=== PATIENT | female | born 1955 | race Caucasian/White ===

== ENCOUNTER 2018-06-11 10:05 | Inpatient (IN) | payer OTHER ==
[2018-06-11] MEDS ORDERED: Ondansetron PF 4 MG/2 ML Vial ONE ×2 (10:35→11:09)
[2018-06-11 11:03] LABS: #Basophils 0.1 thou/uL (0.0-0.2); #Lymphocytes 0.6 thou/uL (1.20-3.40); #Monocytes 0.7 thou/uL (0.11-0.59); #Neutrophils 7.5 thou/uL (1.40-6.50); %Basophils 0.6 % (0.0-1.0); %Lymphocytes 6.6 % (21.0-51.0); %Monocytes 8.3 % (0.0-10.0); %Neutrophils 84.5 % (42.0-75.0); Hemoglobin 11.1 g/dL (12.0-16.0); Mean Corpuscular Hemoglobin 27.3 pg (27.0-31.0); Mean Corpuscular Volume 82.5 fL (78.0-98.0); Mean Platelet Volume 6.5 fL (7.4-10.4); Platelet Count 125 thou/uL (130-400); RBC Distribution Width 12.5 % (11.5-14.5); Red Blood Cell (RBC) Count 4.08 mill/uL (4.20-5.40); White Blood Cell (WBC) Count 8.8 thou/uL (4.8-10.8)
[2018-06-11] MEDS ORDERED: Morphine 4 MG/ML Carpuject ONE (11:09)
[2018-06-11 11:14] LABS: ALT (SGPT) 32 U/L (8-55); AST (SGOT) 32 U/L (5-34); Albumin 3.5 g/dL (3.4-4.8); Alkaline Phosphatase 92 U/L (40-150); Anion Gap 17 mmol/L (10-20); BUN (Urea Nitrogen) 39 mg/dL (9.8-20.1); Bilirubin, Total 0.8 mg/dL (0.2-1.2); Calc. Creatinine Clearance 0 mL/min (70-130); Calcium 9.7 mg/dL (7.8-10.44); Carbon Dioxide 24 mmol/L (23-31); Chloride 98 mmol/L (98-107); Estimated GFR-MDRD 26; Globulin 3.1 g/dL (2.4-3.5); Glucose 122 mg/dL (80-115); Lipase 8 U/L (8-78); Potassium 3.6 mmol/L (3.5-5.1); Protein, Total 6.6 g/dL (6.0-8.3); Sodium 135 mmol/L (136-145)
[2018-06-11] MEDS ORDERED: Sodium Chloride 0.9% 100 ML ONE ×2 (12:05→13:23)
[2018-06-11] MEDS ORDERED: Piperacillin/Tazobactam 4.5 GM VIAL ONE (12:05)
[2018-06-11] MEDS ORDERED: Morphine 4 MG/ML VIAL ONE (12:05)
[2018-06-11] MEDS ORDERED: VANC / ABX IVPB PRN (12:10)
[2018-06-11] MEDS ORDERED: Vancomycin HCl 1 GM in Premix Bag 1 BAG IVPB SCH (12:15)
--- NOTE | 2018-06-11 12:19 | CT ---
CT ABDOMEN AND PELVIS WITHOUT CONTRAST: Date: 06/11/18 HISTORY: Abdominal pain. COMPARISON: None. FINDINGS: Lung bases are clear. No pericardial effusion. The liver is enlarged. There is cholelithiasis. There is gas within the left renal collecting system. There is left-sided perinephric stranding. Ther e are two separate calculi in the intrapolar left renal collecting system measuring 3 x 3 mm and 3 x 4 mm. Mild left-sided periureteral stranding. No distal obstructive calculus to the left ureter. No c alculus is seen within the urinary bladder. No right-sided hydroureteronephrosis or nephroureterolithiasis. The appendix is visualized and is normal. There is some reactive left periaortic and perirenal lymph nodes, as well as iliac lymph nodes. Small, fat-containing, left-sided indirect inguinal hernia. There are degenerative changes in the lumbar spine. IMPRESSION: 1. Asymmetric left perinephric stranding with thickened renal pelvic urothelium and proximal ureter al urothelium. Findings suggest infectious pyelitis and pyelonephritis. There are 3 x 3 and 3 x 4 mm calculus intrapolar left renal sukhdev, as well as a 3 x 3 mm calculus left superior renal sukhdev. There is no calculus within the left ureter to explain the inflammatory change and the low grade dilatatio n of the collecting system on the left. The patient may have passed a stone which has caused the infe ctious pyelitis. Underlying distal obstructive mass at the ureterovesical junction is not ween. A fol low-up CT urogram may be beneficial after treatment. 2. Cholelithiasis without cholecystitis. POS: [facility]
[2018-06-11 13:20] LABS: Bilirubin Negative (Negative); Blood, Urine Small (Negative); Clarity Cloudy (Clear); Glucose, Urine (Dipstick) Negative (Negative); Leukocyte Large (Negative); Nitrite Negative (Negative); Protein, Urine (Dipstick) Negative (Neg-Trace); Urobilinogen 0.2 mg/dL (0.2-1.0); pH, Urine 5.5 (5.0-9.0)
[2018-06-11 13:21] LABS: Specific Gravity, Urine 1.005 (1.002-1.036)
[2018-06-11] MEDS ORDERED: Meropenem 1 GM VIAL ONE (13:22)
[2018-06-11 13:23] LABS: Bacteria/HPF Rare-Few HPF (None Seen); RBC/HPF 0-3 HPF (0-3); Renal Epithelial 0-3 HPF (0-3); Squamous Epithelial 0-3 HPF (0-3)
[2018-06-11] MEDS ORDERED: Ondansetron ODT 4 MG TAB PO PRN (13:24)
[2018-06-11] MEDS ORDERED: hydrALAZINE 20 MG/ML VIAL SLOW IVP PRN (13:28)
[2018-06-11] MEDS ORDERED: Meropenem 1 GM in Sodium Chloride 0.9% 100 ML IVPB SCH (14:00)
[2018-06-11 16:31] VITALS: BMI 53.7
[2018-06-11] MEDS: Sodium Chloride 0.9% 1,000 ML IV SCH ×2 (16:44→18:14)
[2018-06-11] MEDS: Acetaminophen 325 MG TAB PO PRN (18:14)
[2018-06-11] MEDS: Ondansetron PF 4 MG/2 ML Vial IVP PRN (20:30)
[2018-06-11] MEDS: MEROPENEM 1 GM/50 ML 1 GM in Premix Bag 1 BAG IVPB SCH (20:32)
[2018-06-12] MEDS: Sodium Chloride 0.9% 1,000 ML IV SCH ×5 (00:36→20:49)
[2018-06-12] MEDS: Acetaminophen 325 MG TAB PO PRN ×3 (01:19→18:25)
[2018-06-12] MEDS ORDERED: Dextrose 5% in Water 1,000 ML IV PRN (01:47)
[2018-06-12] MEDS ORDERED: Dextrose 50% Abboject 50 ML SYRINGE SLOW IVP PRN (01:47)
[2018-06-12] MEDS ORDERED: HumaLOG 300 UNITS/3 ML VIAL SC PRN ×3 (01:47→12:37)
[2018-06-12] MEDS ORDERED: PROVENTIL INHALER 6.7 G (200 INHALATIONS) INH PRN (01:50)
[2018-06-12] MEDS ORDERED: Hyoscyamine Sulfate SL 0.125 mg Tablet SL PRN (01:50)
[2018-06-12] MEDS: Ondansetron PF 4 MG/2 ML Vial IVP PRN (02:24)
--- NOTE | 2018-06-12 04:29 | HP ---
PRIMARY CARE PROVIDER: Dr. Amaya Patterson. CHIEF COMPLAINT: Abdominal and left flank pain. HISTORY OF PRESENT ILLNESS: This is a 63-year-old female, who presents to [facility] complaining of left upper abdominal pain and left flank pain over the last 4 days. The patient states that the pain began suddenly with radiation to the back and toward the umbilicus. The patient noted discoloration and cloudiness to the urine, but no specific documented fever. The patient admitted associated nausea and some emesis with decreased appetite and oral intake over the last 4 days. The patient's last known oral intake was 4 days prior to this evaluation, as well as last bowel movement. The patient denied any specific trauma, injury, ingestion, or travel history. The patient does admit to history of left renal lithiasis status post laser lithotripsy with stone extraction in 2012. The patient was evaluated by her primary care provider and placed on Macrobid and given Flomax. The patient states the symptoms progressed prompting her to seek medical attention. In the emergency room, the patient underwent general evaluation including urinalysis showing large leukocyte esterase and WBCs. The patient underwent CT of the abdomen and pelvis showing evidence of stranding in the proximal left ureter with gas noted in the left renal collecting system. Small renal calculi were noted, however, no evidence of hydronephrosis reported. The patient was given vancomycin, meropenem, and Zosyn in the emergency room. The patient also received intravenous normal saline as well as antiemetics and morphine sulfate. PAST MEDICAL HISTORY: 1. Left renal lithiasis, status post laser lithotripsy with stone extraction and stent placement. 2. Chronic kidney disease stage 2. 3. Diabetes mellitus type 2, insulin requiring. 4. Hypertension. 5. Obstructive sleep apnea with nocturnal nasal CPAP. 6. Morbid obesity. 7. Migraine headaches. PAST SURGICAL HISTORY: 1. Status post extracorporeal shock wave lithotripsy in 2012. 2. Status post laser lithotripsy in 2012. 3. Status post hysterectomy secondary to cervical cancer in 1986. 4. Status post excision of a breast tumor. CURRENT MEDICATIONS: 1. ProAir RespiClick two inhalations q.4 hours p.r.n. 2. Lipitor 20 mg p.o. daily. 3. Lasix 20 mg p.o. daily. 4. Levsin SL 0.125 mg sublingually q.4 hours p.r.n. 5. NovoLog FlexPen 5 units subcutaneously with meals. 6. Glargine insulin 55 units subcutaneously b.i.d. 7. Losartan/HCTZ 50/12.5 mg 1 tab p.o. daily. 8. Imitrex 6 mg subcutaneously b.i.d. p.r.n. 9. Imitrex 100 mg p.o. daily. 10. Flomax 0.4 mg p.o. daily. 11. Tramadol 50 mg 1 tablet p.o. q.6 hours p.r.n. pain. ALLERGIES: TO KEFLEX, CIPROFLOXACIN, IBUPROFEN, LATEX, AND BACTRIM. FAMILY HISTORY: Father had myocardial infarction. Mother with diabetes mellitus and CVA. SOCIAL HISTORY: Resides in [place], [place]. . No current alcohol, tobacco, or illicit drug use. REVIEW OF SYSTEMS: CONSTITUTIONAL: Negative for weight loss or gain, ability to conduct usual activities. SKIN: Negative for rash, itching. EYES: Negative for double vision, pain. ENT/MOUTH: Negative for nose bleeding, neck stiffness, pain, tenderness. CARDIOVASCULAR: Negative for palpitations, dyspnea on exertion, orthopnea. RESPIRATORY: Negative for shortness of breath, wheezing, cough, hemoptysis, fever or night sweats. GASTROINTESTINAL: As above. GENITOURINARY: As above. Negative for urgency, frequency, dysuria, nocturia. MUSCULOSKELETAL: Negative for pain, swelling. NEUROLOGIC/PSYCHIATRIC: Negative for anxiety, depression. ALLERGY/IMMUNOLOGIC: Negative for skin rash, bleeding tendency. PHYSICAL EXAMINATION: VITAL SIGNS: On admission, blood pressure 116/53, pulse 77, respiratory rate 22, temperature 98.8 degrees Fahrenheit, O2 saturation 96% on room air. GENERAL APPEARANCE: This is a 63-year-old female, alert and oriented x3, pleasant, conversant, in no acute distress. HEENT: Pupils are equal, round, reactive to light and accommodation. Extraocular muscles are intact. No scleral icterus. No conjunctival injection. Nares patent. OP is clear. Nasal CPAP mask in place. NECK: Supple. No cervical adenopathy. No thyromegaly. No carotid bruits. No JVD appreciated. Cervical spinal, full active and passive range of motion. No meningeal signs noted. CHEST: Lungs are clear to auscultation bilaterally. CARDIOVASCULAR: S1 and S2 without noted murmur, rub, or gallop. ABDOMEN: Obese with mild tenderness to palpation in the left upper and left lower quadrants in addition to left CVA tenderness. No palpable mass. However, landmarks are difficult to palpate due to patient's body habitus. EXTREMITIES: Warm and dry with fair turgor. No clubbing, cyanosis, or asymmetric edema appreciated. Pulses palpable distally at the dorsalis pedis, posterior tibial, and popliteal arteries bilaterally. Capillary refill less than 2 seconds. NEUROLOGIC: Cranial nerves 2 through 12 are grossly intact. No focal or lateralizing signs appreciated. PERTINENT LABORATORY AND X-RAY FINDINGS: Sodium 135, potassium 3.5, chloride 98, CO2 24, BUN 39, creatinine 1.97, estimated GFR 26. Lactic acid level 0.7, calcium 9.7. LFTs within normal limits. Lipase 8. CBC showed a white blood cell count of 8.8, hemoglobin 11, hematocrit 34, and platelet count 125, with 85% neutrophils. Urinalysis dated 06/11/2018, showed large leukocyte esterase with 4 to 6 wbc's per high-powered field. CT of the abdomen and pelvis dated 06/11/2018 showed asymmetric left perinephric stranding with thickened renal pelvic urothelium. Small left-sided calculus noted. No hydronephrosis noted. EKG dated 06/11/2018 by my interpretation shows sinus mechanism with heart rates in the 70s. Normal R-wave progression noted in the precordial leads. Normal axis. No acute ST-T wave changes appreciated. ASSESSMENT AND PLAN: 1. Acute pyelonephritis. The patient will be admitted to the medical floor. We will continue meropenem 1 g IV q.8 hours with additional vancomycin 2 g IV daily. Continue intravenous normal saline. Pain control with morphine sulfate 4 mg IV q.4 hours p.r.n. No current evidence to suggest obstructive uropathy by CT imaging. 2. Acute kidney injury. We will continue IV fluids as outlined previously. Avoid nephrotoxic agents and limit contrast exposure. Serial creatinine monitoring. 3. Dehydration. Continue IV fluids as outlined previously. Encourage increased p.o. free water intake. 4. Diabetes mellitus type 2, insulin requiring. Continue insulin sliding scale for reflexive coverage. Confirm home insulin regimen. ADA diet. Serial Accu-Cheks a.c. and h.s. 5. Prophylaxis. SCDs while in bed. Pepcid 20 mg p.o. b.i.d. 6. Code status, full. Surrogate medical decision maker is the patient's spouse. Job ID: [id number]
[2018-06-12] MEDS: MEROPENEM 1 GM/50 ML 1 GM in Premix Bag 1 BAG IVPB SCH ×3 (04:56→20:31)
[2018-06-12 07:22] LABS: #Lymphocytes 0.8 thou/uL (1.20-3.40); #Monocytes 0.5 thou/uL (0.11-0.59); #Neutrophils 4.3 thou/uL (1.40-6.50); %Basophils 0.8 % (0.0-1.0); %Eosinophils 0.3 % (0.0-10.0); %Lymphocytes 14.4 % (21.0-51.0); %Monocytes 8.8 % (0.0-10.0); %Neutrophils 75.8 % (42.0-75.0); Hemoglobin 10.5 g/dL (12.0-16.0); Mean Corpuscular HGB CONC 32.1 g/dL (32.0-36.0); Mean Corpuscular Hemoglobin 27.9 pg (27.0-31.0); Mean Corpuscular Volume 87.1 fL (78.0-98.0); Mean Platelet Volume 6.7 fL (7.4-10.4); Platelet Count 188 thou/uL (130-400); RBC Distribution Width 13.8 % (11.5-14.5); Red Blood Cell (RBC) Count 3.77 mill/uL (4.20-5.40); White Blood Cell (WBC) Count 5.7 thou/uL (4.8-10.8)
[2018-06-12 07:27] LABS: Lactic Acid 0.8 mmol/L (0.5-2.2)
[2018-06-12 07:35] LABS: ALT (SGPT) 28 U/L (8-55); AST (SGOT) 27 U/L (5-34); Albumin 3.4 g/dL (3.4-4.8); Alkaline Phosphatase 105 U/L (40-150); Anion Gap 14 mmol/L (10-20); BUN (Urea Nitrogen) 31 mg/dL (9.8-20.1); Bilirubin, Total 0.6 mg/dL (0.2-1.2); CRP (Inflammatory) 20.48 mg/dL (= or < 0.5); Calc. Creatinine Clearance 65 mL/min (70-130); Calcium 9.2 mg/dL (7.8-10.44); Carbon Dioxide 25 mmol/L (23-31); Chloride 105 mmol/L (98-107); Estimated GFR-MDRD 28; Globulin 2.9 g/dL (2.4-3.5); Glucose 88 mg/dL (80-115); Magnesium 1.9 mg/dL (1.6-2.6); Potassium 3.9 mmol/L (3.5-5.1); Protein, Total 6.3 g/dL (6.0-8.3); Sodium 140 mmol/L (136-145)
[2018-06-12] MEDS: Tamsulosin HCl 0.4 MG CAP PO SCH (08:37)
[2018-06-12] MEDS: Saccharomyces boulardii 250 MG CAP PO SCH (08:37)
[2018-06-12] MEDS: Enoxaparin Sodium 40 MG/0.4 ML SYRINGE SC SCH (08:37)
[2018-06-12] MEDS: Atorvastatin Calcium 20 MG TAB PO SCH (08:37)
[2018-06-12] MEDS: Insulin Glargine 25 UNITS in Pre-Filled Syringe 1 EACH SC SCH ×2 (08:38→20:47)
[2018-06-12] MEDS ORDERED: SUMAtriptan Succinate 50 MG TAB PO SCH (09:00)
[2018-06-12] MEDS ORDERED: Insulin Glargine 55 UNITS in Pre-Filled Syringe 1 EACH SC SCH (09:00)
[2018-06-12] MEDS ORDERED: INSULIN GLARGINE HUM REC ANLOG SQ SCH (09:00)
[2018-06-12] MEDS ORDERED: [UNRECOGNIZED DRUG - OTHER] SQ SCH (09:00)
[2018-06-12 13:38] LABS: Vancomycin, Random 9.4 ug/mL (See Comment)
[2018-06-12] MEDS: traMADol HCl 50 MG TAB PO PRN (18:25)
[2018-06-12] MEDS: Morphine 4 MG/ML VIAL SLOW IVP PRN (20:38)
--- NOTE | 2018-06-12 22:55 | CON ---
DATE OF CONSULTATION: 06/12/2018 REASON FOR CONSULTATION: Pyelonephritis. HISTORY OF PRESENT ILLNESS: A 63-year-old, appears to be the 1st admission at [facility] with a history of type 2 diabetes, nephrolithiasis with prior stone extraction and stent placement, obesity, who developed flank pain for the past 4 days before admission, fairly sudden onset. She has had some nausea and emesis. Urinalysis was abnormal on arrival and CT of abdomen and pelvis showed stranding in the left kidney and there is some gas in the renal collecting system. No hydronephrosis. The patient is given broad-spectrum coverage and admitted to the 3rd floor. No distress right now. Maybe little bit of headaches. No visual symptoms, sore throat, odynophagia, or dysphagia. No back pain. Flank pain is better. No cough or sputum production. No abdominal pain. No genitourinary symptoms. PAST MEDICAL HISTORY: Type 2 diabetes, nephrolithiasis with prior stone extraction and stent placement, hypertension, ZACK, obesity. PAST SURGICAL HISTORY: Lithotripsy, hysterectomy, breast tumor excision. ALLERGIES: 1. KEFLEX. 2. CIPRO. 3. BACTRIM. FAMILY HISTORY: Coronary artery disease and type 2 diabetes. SOCIAL HISTORY: Never smoker. Lives in [place]. CURRENT MEDICATIONS: 1. Tylenol. 2. Proventil. 3. Lipitor. 4. Lovenox. 5. Levsin. 6. Insulin. 7. Meropenem. 8. Vancomycin. PHYSICAL EXAMINATION: VITAL SIGNS: T-max 99, blood pressure 108/66, pulse 75, respirations 18, O2 saturation 98% on room air. GENERAL: Appears in no distress. SKIN: Normal. The patient has peripheral IV access and is voiding in the toilet. No lymphadenopathy. HEENT: Noncontributory. NECK: Supple. LUNGS: Symmetric. Clear breath sounds. HEART: S1 and S2. Regular rate. ABDOMEN: Soft with mild left flank tenderness. No bladder distention. EXTREMITIES: No joint inflammatory activity. Pulses 1+ in dorsalis pedis. No edema. Moves extremities equally. NEUROLOGIC: Cognitive function appears to be intact. LABORATORY DATA: White cell count 8.8 and 5.7, hemoglobin 11, platelets 125 and 188, 84% neutrophils. Chemistry with a creatinine of 1.84, which is a bit higher than her baseline of 1.24. Liver profile normal. CRP 20. Albumin 3.4. Urinalysis with 4 to 6 wbc's. Urine culture with gram-negative rods, yet to be susceptibility tested. Two sets of blood cultures, no growth thus far. Abdomen CT with gas in the collecting system, but not in the renal parenchyma. Perinephric stranding. Two small calculi, but no obstruction. ASSESSMENT: 1. Obesity with type 2 diabetes. 2. History of nephrolithiasis with prior stenting, now with flank pain and imaging findings are consistent with pyelonephritis. DISCUSSION: Since the patient does not have gas actually located in the renal parenchyma, but only in the collecting system, this is not the true emphysematous pyelonephritis, but just regular pyelonephritis. Continue to respond well, sooner now we will have the results of the cultures and be able to simplify therapy. We will have to inquire further regarding her quinolone allergy to see if this is a true allergic reaction. Job ID: [id number]
[2018-06-13] MEDS: Sodium Chloride 0.9% 1,000 ML IV SCH ×2 (04:41→12:05)
[2018-06-13] MEDS: Morphine 4 MG/ML VIAL SLOW IVP PRN (04:42)
[2018-06-13] MEDS: MEROPENEM 1 GM/50 ML 1 GM in Premix Bag 1 BAG IVPB SCH ×3 (04:50→20:17)
[2018-06-13 06:56] LABS: #Lymphocytes 0.8 thou/uL (1.20-3.40); #Monocytes 0.6 thou/uL (0.11-0.59); #Neutrophils 4.5 thou/uL (1.40-6.50); %Basophils 0.6 % (0.0-1.0); %Eosinophils 0.7 % (0.0-10.0); %Lymphocytes 13.4 % (21.0-51.0); %Monocytes 9.4 % (0.0-10.0); %Neutrophils 75.9 % (42.0-75.0); Hemoglobin 9.5 g/dL (12.0-16.0); Mean Corpuscular Hemoglobin 27.6 pg (27.0-31.0); Mean Corpuscular Volume 86.3 fL (78.0-98.0); Mean Platelet Volume 6.4 fL (7.4-10.4); Platelet Count 166 thou/uL (130-400); RBC Distribution Width 13.9 % (11.5-14.5); Red Blood Cell (RBC) Count 3.42 mill/uL (4.20-5.40); White Blood Cell (WBC) Count 5.9 thou/uL (4.8-10.8)
[2018-06-13 07:16] LABS: ALT (SGPT) 35 U/L (8-55); AST (SGOT) 31 U/L (5-34); Alkaline Phosphatase 123 U/L (40-150); Anion Gap 12 mmol/L (10-20); BUN (Urea Nitrogen) 22 mg/dL (9.8-20.1); Bilirubin, Total 0.4 mg/dL (0.2-1.2); Calc. Creatinine Clearance 77 mL/min (70-130); Calcium 8.4 mg/dL (7.8-10.44); Carbon Dioxide 23 mmol/L (23-31); Chloride 108 mmol/L (98-107); Estimated GFR-MDRD 34; Globulin 2.6 g/dL (2.4-3.5); Glucose 108 mg/dL (80-115); Protein, Total 5.6 g/dL (6.0-8.3); Sodium 139 mmol/L (136-145)
[2018-06-13] MEDS: Enoxaparin Sodium 40 MG/0.4 ML SYRINGE SC SCH (08:29)
[2018-06-13] MEDS: Saccharomyces boulardii 250 MG CAP PO SCH (08:30)
[2018-06-13] MEDS: Tamsulosin HCl 0.4 MG CAP PO SCH (08:30)
[2018-06-13] MEDS: Atorvastatin Calcium 20 MG TAB PO SCH (08:30)
[2018-06-13] MEDS: Insulin Glargine 25 UNITS in Pre-Filled Syringe 1 EACH SC SCH ×2 (08:35→21:57)
[2018-06-13] MEDS: Sodium Chloride 0.45% 1,000 ML IV SCH ×2 (15:22→21:57)
[2018-06-13] MEDS: Acetaminophen 325 MG TAB PO PRN (17:03)
[2018-06-13] MEDS ORDERED: HumaLOG 300 UNITS/3 ML VIAL SC PRN (21:31)
--- NOTE | 2018-06-13 21:36 | PDOC.PN ---
- Subjective Encounter Start Date: 06/13/18 Encounter Start Time: 10:30 Patient seen and examined for Acute Pyelonephritis. Flank pain resolved. No fever/chills/dysuria/diarrhea. No new complaints. No overnight events - Objective Resuscitation Status - Order Detail: 06/11/18 13:24 Resuscitation Status Routine Resuscitation Status: FULL: Full Resuscitation MAR Reviewed: Yes Vital Signs & Weight: Vital Signs (12 hours) Temp Pulse Resp BP Pulse Ox 06/13/18 20:50 98.3 F 73 20 118/72 94 L 06/13/18 15:25 98.7 F 81 20 152/70 H 98 06/13/18 11:50 97.7 F 84 18 134/72 92 L Weight Weight 294 lb I&O: 06/12/18 06/13/18 06/14/18 06:59 06:59 06:59 Intake Total 480 7065 3875 Output Total 325 2175 1400 Balance 155 4890 2475 Result Diagrams: 06/14/18 09:23 06/14/18 09:23 Additional Labs: Accuchecks 06/13/18 06/13/18 06/13/18 21:15 15:25 11:56 POC Glucose 128 H 127 H 117 H 06/13/18 05:20 POC Glucose 108 Radiology Reviewed by me: Yes (CT - Pyelonep.) Phys Exam - Physical Examination Constitutional: NAD HEENT: PERRLA, moist MMs Neck: no JVD Respiratory: no wheezing, no rales, no rhonchi, clear to auscultation bilateral Cardiovascular: RRR, no rub no heaves/pulsations Gastrointestinal: soft, non-tender, no distention, positive bowel sounds Musculoskeletal: no edema, pulses present Neurological: non-focal, normal sensation, moves all 4 limbs Psychiatric: normal affect, A&O x 3 Skin: no rash Dx/Plan (1) Acute pyelonephritis Code(s): N10 - ACUTE PYELONEPHRITIS Status: Acute (2) SUNNY (acute kidney injury) Code(s): N17.9 - ACUTE KIDNEY FAILURE, UNSPECIFIED Status: Acute (3) Morbid obesity with BMI of 50.0-59.9, adult Code(s): E66.01 - MORBID (SEVERE) OBESITY DUE TO EXCESS CALORIES; Z68.43 - BODY MASS INDEX (BMI) 50-59.9, ADULT Status: Chronic (4) DM2 (diabetes mellitus, type 2) Status: Chronic Qualifiers: Chronic kidney disease stage: stage 3 (moderate) (5) Other issues per previous notes - Plan cont current plan of care, continue antibiotics, out of bed/ambulate, DVT proph w/SCDs Change IVF to 1/2 NS -: Cont Vancomycin and Meropenem -: Cont other meds as below -: Change sliding scale to mild -: Cont low dose Lantus Review of Systems - Medications/Allergies Allergies/Adverse Reactions: Allergies Allergy/AdvReac Type Severity Reaction Status Date / Time cephalexin [From Keflex] Allergy Severe Anaphylaxis Verified 06/13/18 14:38 ciprofloxacin [From Cipro] Allergy Verified 06/11/18 16:34 ibuprofen [From Motrin] Allergy Verified 06/11/18 16:34 latex Allergy Verified 06/11/18 16:34 naproxen [From Aleve] Allergy Verified 06/11/18 16:34 trimethoprim Allergy Verified 06/11/18 16:34 Medications: Current Medications Acetaminophen (Tylenol) 650 mg PO Q4H PRN PRN Reason: Headache/Fever/Mild Pain (1-3) Last Admin: 06/13/18 17:03 Dose: 650 mg Albuterol Sulfate (Proventil Hfa) 2 puff INH Q4H PRN PRN Reason: SOB &/or Wheezing Atorvastatin Calcium (Lipitor) 20 mg PO DAILY [facility] Last Admin: 06/13/18 08:30 Dose: 20 mg Dextrose/Water (Dextrose 50%) 25 gm SLOW IVP PRN PRN PRN Reason: Hypoglycemia Enoxaparin Sodium (Lovenox) 40 mg SC 0900 [facility] Last Admin: 06/13/18 08:29 Dose: 40 mg Glucagon (Glucagon) 1 mg IM PRN PRN PRN Reason: Hypoglycemia Hydralazine HCl (Apresoline) 10 mg SLOW IVP Q4H PRN PRN Reason: SBP Greater Than 180 Hyoscyamine Sulfate (Levsin Sl) 0.125 mg SL Q4H PRN PRN Reason: URINARY SPASMS Meropenem 1 gm/ Device 50 mls @ 100 mls/hr IVPB 0500,1300,2100 [facility] Last Admin: 06/13/18 20:17 Dose: 50 mls Dextrose/Water (D5w) 1,000 mls @ 0 mls/hr IV .Q0M PRN PRN Reason: Hypoglycemia Insulin Glargine 25 units/ (Miscellaneous Medication) 0.25 mls @ 0 mls/hr SC BID [facility] Last Admin: 06/13/18 08:35 Dose: 0.25 mls Sodium Chloride (1/2 Normal Saline) 1,000 mls @ 125 mls/hr IV .Q8H [facility] Last Admin: 06/13/18 15:22 Dose: Not Given Insulin Human Lispro (Humalog) 0 units SC .BEDTIME SLIDING SC PRN PRN Reason: Bedtime Correctional Scale Insulin Human Lispro (Humalog) 0 units SC .MILD SLIDING SCALE PRN PRN Reason: Mild Correctional Scale Miscellaneous Medication (Pharmacy To Dose) 1 each IVPB DAILYPRN PRN PRN Reason: LAB Morphine Sulfate (Morphine) 4 mg SLOW IVP Q4H PRN PRN Reason: Moderate to Severe Pain (6-10) Last Admin: 06/13/18 04:42 Dose: 4 mg Ondansetron HCl (Zofran Odt) 4 mg PO Q6H PRN PRN Reason: Nausea/Vomiting Ondansetron HCl (Zofran) 4 mg IVP Q6H PRN PRN Reason: Nausea/Vomiting Last Admin: 06/12/18 02:24 Dose: 4 mg Saccharomyces Boulardii (Florastor) 250 mg PO DAILY [facility] Last Admin: 06/13/18 08:30 Dose: 250 mg Sumatriptan Succinate (Imitrex) 50 mg PO PRN PRN PRN Reason: Migraine Headache Tamsulosin HCl (Flomax) 0.4 mg PO DAILY [facility] Last Admin: 06/13/18 08:30 Dose: 0.4 mg Tramadol HCl (Ultram) 50 mg PO Q12H PRN PRN Reason: Moderate Pain (4-6) Last Admin: 06/12/18 18:25 Dose: 50 mg
[2018-06-14] MEDS: SUMAtriptan Succinate 50 MG TAB PO PRN (03:54)
[2018-06-14] MEDS: MEROPENEM 1 GM/50 ML 1 GM in Premix Bag 1 BAG IVPB SCH ×3 (04:00→21:03)
[2018-06-14] MEDS ORDERED: Polyethylene Glycol 3350 17 GM Packet PO PRN (06:24)
[2018-06-14] MEDS ORDERED: Senokot 8.6 MG TAB PO PRN (06:25)
[2018-06-14] MEDS ORDERED: Polyethylene Glycol 3350 17 GM Packet PO SCH (06:30)
[2018-06-14] MEDS: Saccharomyces boulardii 250 MG CAP PO SCH (08:45)
[2018-06-14] MEDS: Atorvastatin Calcium 20 MG TAB PO SCH (08:45)
[2018-06-14] MEDS: Tamsulosin HCl 0.4 MG CAP PO SCH (08:45)
[2018-06-14] MEDS: Insulin Glargine 25 UNITS in Pre-Filled Syringe 1 EACH SC SCH ×2 (08:46→21:04)
[2018-06-14] MEDS: Enoxaparin Sodium 40 MG/0.4 ML SYRINGE SC SCH (08:46)
[2018-06-14 09:44] LABS: #Lymphocytes 0.8 thou/uL (1.20-3.40); #Monocytes 0.5 thou/uL (0.11-0.59); #Neutrophils 5.6 thou/uL (1.40-6.50); %Basophils 0.4 % (0.0-1.0); %Eosinophils 0.6 % (0.0-10.0); %Lymphocytes 11.3 % (21.0-51.0); %Monocytes 6.7 % (0.0-10.0); %Neutrophils 80.9 % (42.0-75.0); Hemoglobin 10.7 g/dL (12.0-16.0); Mean Corpuscular HGB CONC 32.6 g/dL (32.0-36.0); Mean Corpuscular Hemoglobin 27.9 pg (27.0-31.0); Mean Corpuscular Volume 85.6 fL (78.0-98.0); Mean Platelet Volume 6.3 fL (7.4-10.4); Platelet Count 192 thou/uL (130-400); RBC Distribution Width 13.9 % (11.5-14.5); Red Blood Cell (RBC) Count 3.82 mill/uL (4.20-5.40); White Blood Cell (WBC) Count 6.9 thou/uL (4.8-10.8)
[2018-06-14 10:00] LABS: Anion Gap 11 mmol/L (10-20); BUN (Urea Nitrogen) 15 mg/dL (9.8-20.1); Calc. Creatinine Clearance 92 mL/min (70-130); Carbon Dioxide 25 mmol/L (23-31); Chloride 107 mmol/L (98-107); Estimated GFR-MDRD 41; Glucose 133 mg/dL (80-115); Potassium 4.3 mmol/L (3.5-5.1); Sodium 139 mmol/L (136-145)
[2018-06-14] MEDS: Sodium Chloride 0.45% 1,000 ML IV SCH ×2 (14:19→15:22)
--- NOTE | 2018-06-14 15:32 | PRG ---
DATE OF SERVICE: 06/14/2018 SUBJECTIVE: Having what she describes as dyspnea when she lays down. No cough. No chest pain. No abdominal pain or diarrhea. OBJECTIVE: VITAL SIGNS: She has been afebrile. BP 140/80, pulse 71, respirations 20, O2 saturation 97%. HEENT: Ocular movements conjugate. Oral cavity moist. NECK: Supple. LUNGS: Symmetric. Clear breath sounds. HEART: S1 and S2. Regular rate. ABDOMEN: Soft, not distended or tender. LABORATORY DATA: White cell count 6.9, hemoglobin 10.7, platelets 192. Creatinine is 1.30, which is the best she has had since she was admitted. Cultures thus far no growth, final results of urine culture. Actually, she had mixed skin and enteric nancy, so they are not going to give us an isolate to work with. ASSESSMENT AND DISCUSSION: Obesity, type 2 diabetes, nephrolithiasis with prior stenting, now with pyelonephritis. She has dyspnea. We will repeat chest x-ray and brain natriuretic peptide. PICC line placement and plan outpatient of meropenem to be continued for another two weeks. Job ID: [id number]
--- NOTE | 2018-06-14 16:20 | SPC ---
ULTRASOUND AND FLUOROSCOPIC GUIDED LEFT UPPER EXTREMITY PICC LINE PLACEMENT: 06/14/18 INDICATION: History of pyelonephritis, need for shelter IV antibiotics. TECHNIQUE: Informed consent was obtained. Preprocedure ultrasound was performed. The left upper extremity was pr epped and draped in the usual sterile fashion. Buffered 1% lidocaine was administered overlying the s ubcutaneous tissues. Under ultrasound guidance, a micropuncture access kit was utilized to gain acces s to the left basilic vein. Guide wire was advanced to the level of the IVC. A single lumen PICC line trimmed at 54 cm was guided over the wire and into the sheath. The sheath and wire were removed. Total fluoroscopic time was 1.3 [place] [address] mGy*cm2. Catheter flushed and aspirated appropriately. Patient tolerated the procedure without difficulty. IMPRESSION: Successful ultrasound and fluoroscopic guided left upper extremity PICC line placement. POS: [facility]
--- NOTE | 2018-06-14 16:22 | RAD ---
TWO VIEWS CHEST: Comparison: None. History: Dyspnea. FINDINGS: Two views of the chest shows an enlarged cardiomediastinal silhouette. A PICC line is seen with its t ip in the superior vena cava. There is no evidence of consolidation, mass, or pleural effusion. IMPRESSION: Cardiomegaly without evidence of acute cardiopulmonary disease. POS: [facility]
[2018-06-14] MEDS: Acetaminophen 325 MG TAB PO PRN (21:09)
--- NOTE | 2018-06-14 21:34 | PDOC.PN ---
- Subjective Encounter Start Date: 06/14/18 Encounter Start Time: 14:00 Patient seen and examined for Acute Pyelonephritis. No new complaints. No overnight events - Objective Resuscitation Status - Order Detail: 06/11/18 13:24 Resuscitation Status Routine Resuscitation Status: FULL: Full Resuscitation MAR Reviewed: Yes Vital Signs & Weight: Vital Signs (12 hours) Temp Pulse Resp BP Pulse Ox 06/14/18 20:53 98.1 F 66 20 149/78 H 95 06/14/18 16:46 97.7 F 65 20 153/71 H 96 06/14/18 12:00 97.9 F 71 20 146/83 H 97 Weight Weight 294 lb I&O: 06/13/18 06/14/18 06/15/18 06:59 06:59 06:59 Intake Total 7065 3875 2210 Output Total 2175 1400 4400 Balance 4890 0694 -219 Result Diagrams: 06/14/18 09:23 06/14/18 09:23 Additional Labs: Accuchecks 06/14/18 06/14/18 06/14/18 21:03 16:29 10:59 POC Glucose 129 H 101 112 H 06/14/18 06/14/18 05:58 03:52 POC Glucose 113 H 95 Phys Exam - Physical Examination Constitutional: NAD Respiratory: no wheezing, no rhonchi Cardiovascular: RRR Gastrointestinal: soft, non-tender, no distention, positive bowel sounds Musculoskeletal: no edema Neurological: moves all 4 limbs Dx/Plan (1) Acute pyelonephritis Code(s): N10 - ACUTE PYELONEPHRITIS Status: Acute (2) SUNNY (acute kidney injury) Code(s): N17.9 - ACUTE KIDNEY FAILURE, UNSPECIFIED Status: Acute Comment: CKD 3. improving (3) Morbid obesity with BMI of 50.0-59.9, adult Code(s): E66.01 - MORBID (SEVERE) OBESITY DUE TO EXCESS CALORIES; Z68.43 - BODY MASS INDEX (BMI) 50-59.9, ADULT Status: Chronic (4) DM2 (diabetes mellitus, type 2) Status: Chronic Qualifiers: Chronic kidney disease stage: stage 3 (moderate) (5) Other issues per previous notes - Plan continue antibiotics, DVT proph w/SCDs Cont Meropenem -: PICC line per ID -: Outpt Atbx setup -: DC IVF -: Cont other meds as below Review of Systems - Review of Systems Respiratory: negative: Cough, Dry, Shortness of Breath, Hemoptysis, SOB with Excertion, Pleuritic Pain, Sputum, Wheezing Cardiovascular: negative: chest pain, palpitations, orthopnea, paroxysmal nocturnal dyspnea, edema, light headedness, other Gastrointestinal: negative: Nausea, Vomiting, Abdominal Pain, Diarrhea, Constipation, Melena, Hematochezia, Other - Medications/Allergies Allergies/Adverse Reactions: Allergies Allergy/AdvReac Type Severity Reaction Status Date / Time cephalexin [From Keflex] Allergy Severe Anaphylaxis Verified 06/13/18 14:38 ciprofloxacin [From Cipro] Allergy Verified 06/11/18 16:34 ibuprofen [From Motrin] Allergy Verified 06/11/18 16:34 latex Allergy Verified 06/11/18 16:34 naproxen [From Aleve] Allergy Verified 06/11/18 16:34 trimethoprim Allergy Verified 06/11/18 16:34 Medications: Current Medications Acetaminophen (Tylenol) 650 mg PO Q4H PRN PRN Reason: Headache/Fever/Mild Pain (1-3) Last Admin: 06/14/18 21:09 Dose: 650 mg Albuterol Sulfate (Proventil Hfa) 2 puff INH Q4H PRN PRN Reason: SOB &/or Wheezing Last Admin: 06/14/18 00:55 Dose: 2 puff Atorvastatin Calcium (Lipitor) 20 mg PO DAILY [facility] [place] Last Admin: 06/14/18 08:45 Dose: 20 mg Dextrose/Water (Dextrose 50%) 25 gm SLOW IVP PRN PRN PRN Reason: Hypoglycemia Enoxaparin Sodium (Lovenox) 40 mg SC 0900 [facility] [place] Last Admin: 06/14/18 08:46 Dose: 40 mg Glucagon (Glucagon) 1 mg IM PRN PRN PRN Reason: Hypoglycemia Hydralazine HCl (Apresoline) 10 mg SLOW IVP Q4H PRN PRN Reason: SBP Greater Than 180 Hyoscyamine Sulfate (Levsin Sl) 0.125 mg SL Q4H PRN PRN Reason: URINARY SPASMS Meropenem 1 gm/ Device 50 mls @ 100 mls/hr IVPB 0500,1300,2100 [facility] [place] Last Admin: 06/14/18 21:03 Dose: 50 mls Dextrose/Water (D5w) 1,000 mls @ 0 mls/hr IV .Q0M PRN PRN Reason: Hypoglycemia Insulin Glargine 25 units/ (Miscellaneous Medication) 0.25 mls @ 0 mls/hr SC BID [facility] [place] Last Admin: 06/14/18 21:04 Dose: 0.25 mls Insulin Human Lispro (Humalog) 0 units SC .BEDTIME SLIDING SC PRN PRN Reason: Bedtime Correctional Scale Insulin Human Lispro (Humalog) 0 units SC .MILD SLIDING SCALE PRN PRN Reason: Mild Correctional Scale Miscellaneous Medication (Pharmacy To Dose) 1 each IVPB DAILYPRN PRN PRN Reason: LAB Morphine Sulfate (Morphine) 4 mg SLOW IVP Q4H PRN PRN Reason: Moderate to Severe Pain (6-10) Last Admin: 06/13/18 04:42 Dose: 4 mg Ondansetron HCl (Zofran Odt) 4 mg PO Q6H PRN PRN Reason: Nausea/Vomiting Ondansetron HCl (Zofran) 4 mg IVP Q6H PRN PRN Reason: Nausea/Vomiting Last Admin: 06/12/18 02:24 Dose: 4 mg Polyethylene Glycol (Miralax) 17 gm PO DAILY PRN PRN Reason: CONSTIPATION Saccharomyces Boulardii (Florastor) 250 mg PO DAILY [facility] [place] Last Admin: 06/14/18 08:45 Dose: 250 mg Senna (Senokot) 1 tab PO DAILYPRN PRN PRN Reason: Constipation Last Admin: 06/14/18 08:45 Dose: 1 tab Sumatriptan Succinate (Imitrex) 50 mg PO PRN PRN PRN Reason: Migraine Headache Last Admin: 06/14/18 03:54 Dose: 50 mg Tamsulosin HCl (Flomax) 0.4 mg PO DAILY [facility] [place] Last Admin: 06/14/18 08:45 Dose: 0.4 mg Tramadol HCl (Ultram) 50 mg PO Q12H PRN PRN Reason: Moderate Pain (4-6) Last Admin: 06/12/18 18:25 Dose: 50 mg
[2018-06-15] MEDS: SUMAtriptan Succinate 50 MG TAB PO PRN (02:43)
[2018-06-15] MEDS: MEROPENEM 1 GM/50 ML 1 GM in Premix Bag 1 BAG IVPB SCH ×3 (05:48→20:48)
[2018-06-15] MEDS: Atorvastatin Calcium 20 MG TAB PO SCH (08:45)
[2018-06-15] MEDS: Enoxaparin Sodium 40 MG/0.4 ML SYRINGE SC SCH (08:45)
[2018-06-15] MEDS: Tamsulosin HCl 0.4 MG CAP PO SCH (08:45)
[2018-06-15] MEDS: Saccharomyces boulardii 250 MG CAP PO SCH (08:45)
[2018-06-15] MEDS: Insulin Glargine 25 UNITS in Pre-Filled Syringe 1 EACH SC SCH ×2 (08:50→22:07)
[2018-06-15] MEDS: Acetaminophen 325 MG TAB PO PRN (17:43)
[2018-06-15] MEDS: traMADol HCl 50 MG TAB PO PRN (20:51)
--- NOTE | 2018-06-15 22:46 | PDOC.PN ---
- Subjective Encounter Start Date: 06/15/18 Encounter Start Time: 14:00 Patient seen and examined for Acute Pyelonephritis. Feels better. No new complaints. No overnight events - Objective Resuscitation Status - Order Detail: 06/11/18 13:24 Resuscitation Status Routine Resuscitation Status: FULL: Full Resuscitation MAR Reviewed: Yes Vital Signs & Weight: Vital Signs (12 hours) Temp Pulse Resp BP Pulse Ox 06/15/18 20:00 98.4 F 66 18 163/74 H 96 06/15/18 15:08 97.8 F 73 18 152/82 H 100 06/15/18 11:05 97.6 F 78 18 141/81 H 94 L Weight Weight 294 lb I&O: 06/14/18 06/15/18 06/16/18 06:59 06:59 06:59 Intake Total 3875 2210 1360 Output Total 1400 5800 1999 Balance 2475 -3590 -640 Result Diagrams: 06/14/18 09:23 06/14/18 09:23 Additional Labs: Accuchecks 06/15/18 06/15/18 06/15/18 21:16 15:45 11:07 POC Glucose 132 H 128 H 121 H Phys Exam - Physical Examination Constitutional: NAD Respiratory: no wheezing, no rhonchi Cardiovascular: RRR, no rub Gastrointestinal: soft, positive bowel sounds Musculoskeletal: no edema Dx/Plan (1) Acute pyelonephritis Code(s): N10 - ACUTE PYELONEPHRITIS Status: Acute (2) SUNNY (acute kidney injury) Code(s): N17.9 - ACUTE KIDNEY FAILURE, UNSPECIFIED Status: Acute Comment: CKD 3. improving (3) Morbid obesity with BMI of 50.0-59.9, adult Code(s): E66.01 - MORBID (SEVERE) OBESITY DUE TO EXCESS CALORIES; Z68.43 - BODY MASS INDEX (BMI) 50-59.9, ADULT Status: Chronic (4) DM2 (diabetes mellitus, type 2) Status: Chronic Qualifiers: Chronic kidney disease stage: stage 3 (moderate) (5) Other issues per previous notes - Plan DVT proph w/SCDs * Cont Meropenem * Await Outpt Atbx setup * Stable for dc * DC IVF * Cont other meds as below Review of Systems - Review of Systems Respiratory: negative: Cough, Dry, Shortness of Breath, Hemoptysis, SOB with Excertion, Pleuritic Pain, Sputum, Wheezing Cardiovascular: negative: chest pain, palpitations, orthopnea, paroxysmal nocturnal dyspnea, edema, light headedness, other Gastrointestinal: negative: Nausea, Vomiting, Abdominal Pain, Diarrhea, Constipation, Melena, Hematochezia, Other - Medications/Allergies Allergies/Adverse Reactions: Allergies Allergy/AdvReac Type Severity Reaction Status Date / Time cephalexin [From Keflex] Allergy Severe Anaphylaxis Verified 06/13/18 14:38 ciprofloxacin [From Cipro] Allergy Verified 06/11/18 16:34 ibuprofen [From Motrin] Allergy Verified 06/11/18 16:34 latex Allergy Verified 06/11/18 16:34 naproxen [From Aleve] Allergy Verified 06/11/18 16:34 trimethoprim Allergy Verified 06/11/18 16:34 Medications: Current Medications Acetaminophen (Tylenol) 650 mg PO Q4H PRN PRN Reason: Headache/Fever/Mild Pain (1-3) Last Admin: 06/15/18 17:43 Dose: 650 mg Albuterol Sulfate (Proventil Hfa) 2 puff INH Q4H PRN PRN Reason: SOB &/or Wheezing Last Admin: 06/14/18 00:55 Dose: 2 puff Atorvastatin Calcium (Lipitor) 20 mg PO DAILY [facility] Last Admin: 06/15/18 08:45 Dose: 20 mg Dextrose/Water (Dextrose 50%) 25 gm SLOW IVP PRN PRN PRN Reason: Hypoglycemia Glucagon (Glucagon) 1 mg IM PRN PRN PRN Reason: Hypoglycemia Hydralazine HCl (Apresoline) 10 mg SLOW IVP Q4H PRN PRN Reason: SBP Greater Than 180 Hyoscyamine Sulfate (Levsin Sl) 0.125 mg SL Q4H PRN PRN Reason: URINARY SPASMS Meropenem 1 gm/ Device 50 mls @ 100 mls/hr IVPB 0500,1300,2100 [facility] Last Admin: 06/15/18 20:48 Dose: 50 mls Dextrose/Water (D5w) 1,000 mls @ 0 mls/hr IV .Q0M PRN PRN Reason: Hypoglycemia Insulin Glargine 25 units/ (Miscellaneous Medication) 0.25 mls @ 0 mls/hr SC BID [facility] Last Admin: 06/15/18 22:07 Dose: 0.25 mls Insulin Human Lispro (Humalog) 0 units SC .BEDTIME SLIDING SC PRN PRN Reason: Bedtime Correctional Scale Insulin Human Lispro (Humalog) 0 units SC .MILD SLIDING SCALE PRN PRN Reason: Mild Correctional Scale Miscellaneous Medication (Pharmacy To Dose) 1 each IVPB DAILYPRN PRN PRN Reason: LAB Morphine Sulfate (Morphine) 4 mg SLOW IVP Q4H PRN PRN Reason: Moderate to Severe Pain (6-10) Last Admin: 06/13/18 04:42 Dose: 4 mg Ondansetron HCl (Zofran Odt) 4 mg PO Q6H PRN PRN Reason: Nausea/Vomiting Last Admin: 06/15/18 22:07 Dose: 4 mg Ondansetron HCl (Zofran) 4 mg IVP Q6H PRN PRN Reason: Nausea/Vomiting Last Admin: 06/12/18 02:24 Dose: 4 mg Polyethylene Glycol (Miralax) 17 gm PO DAILY PRN PRN Reason: CONSTIPATION Last Admin: 06/15/18 08:50 Dose: 17 gm Saccharomyces Boulardii (Florastor) 250 mg PO DAILY [facility] Last Admin: 06/15/18 08:45 Dose: 250 mg Senna (Senokot) 1 tab PO DAILYPRN PRN PRN Reason: Constipation Last Admin: 06/14/18 08:45 Dose: 1 tab Sumatriptan Succinate (Imitrex) 50 mg PO PRN PRN PRN Reason: Migraine Headache Last Admin: 06/15/18 02:43 Dose: 50 mg Tamsulosin HCl (Flomax) 0.4 mg PO DAILY [facility] Last Admin: 06/15/18 08:45 Dose: 0.4 mg Tramadol HCl (Ultram) 50 mg PO Q12H PRN PRN Reason: Moderate Pain (4-6) Last Admin: 06/15/18 20:51 Dose: 50 mg
[2018-06-16] MEDS: Morphine 4 MG/ML VIAL SLOW IVP PRN (03:23)
[2018-06-16] MEDS: MEROPENEM 1 GM/50 ML 1 GM in Premix Bag 1 BAG IVPB SCH (04:55)
[2018-06-16] MEDS: SUMAtriptan Succinate 50 MG TAB PO PRN (05:01)
[2018-06-16] MEDS: Atorvastatin Calcium 20 MG TAB PO SCH (08:08)
[2018-06-16] MEDS: Tamsulosin HCl 0.4 MG CAP PO SCH (08:09)
[2018-06-16] MEDS: Saccharomyces boulardii 250 MG CAP PO SCH (08:09)
[2018-06-16] MEDS: Insulin Glargine 25 UNITS in Pre-Filled Syringe 1 EACH SC SCH (08:09)
[2018-06-16 08:26] VITALS: BP 129/58; TEMP 97.7
--- NOTE | 2018-06-16 12:02 | DIS ---
DATE OF ADMISSION: 06/11/2018 DATE OF DISCHARGE: 06/16/2018 DISCHARGE DISPOSITION: Home. Follow up with primary care physician Dr. Patterson in 1 week. Basic metabolic profile after 1 week is recommended. Primary care physician advised to follow. Follow up with Dr. Coffey for outpatient antibiotics. ALLERGIES: THE PATIENT IS ALLERGIC TO CIPROFLOXACIN, CEPHALEXIN, LATEX, NAPROXEN, AND BACTRIM. DISCHARGE MEDICATIONS: Meropenem 1 g q.[address] Coffey for next 10 days to 2 weeks. All other home medications were left unchanged. The patient was seen on the day of discharge. Denies any new complaints. No chest pain, shortness of breath, palpitations. BRIEF HOSPITAL COURSE: The patient is a 63-year-old female with recently diagnosed UTI on Macrobid, presented to the emergency room with left flank pain. Please refer to the history and physical for further details. The patient was admitted to the hospital with a diagnosis of acute pyelonephritis. CT scan of the abdomen and pelvis done in the emergency room showed asymmetric left perinephric stranding with thickening of the renal pelvis and proximal ureter. Please note, the patient recently had passed kidney stones. She was placed on IV vancomycin and meropenem. Blood cultures remained negative. Urine cultures from three days ago showed E. coli sensitive to meropenem. Please note, the patient has multiple drug allergies. The patient was evaluated by Infectious Disease. Infectious Disease recommended PICC line with IV meropenem for up to two weeks. The blood culture, however, remained negative. She appears stable for discharge. FINAL DIAGNOSES: 1. Acute left-sided pyelonephritis. 2. Acute kidney injury on chronic kidney disease stage 3. Creatinine on admission was 1.97, at discharge was 1.3. 3. Elevated inflammatory markers, CRP was 20.48. 4. Mild hyponatremia. 5. Morbid obesity with a BMI 53.8. 6. Dehydration. 7. Diabetes mellitus, type 2, on insulin. The patient was advised to hold losartan-hydrochlorothiazide until seen by primary care physician. She will benefit from a repeat basic metabolic profile after 1 week. She was also advised to reduce the dose of insulin since she required low dose of long-acting insulin during the hospital stay. Plan of care was discussed with the patient and the family in detail, they stated understanding. Job ID: [id number]
--- NOTE | 2018-06-17 21:34 | EKG ---
Test Reason : Blood Pressure : / mmHG Vent. Rate : 073 BPM Atrial Rate : 073 BPM P-R Int : 154 ms QRS Dur : 106 ms QT Int : 390 ms P-R-T Axes : 030 024 038 degrees QTc Int : 429 ms Normal sinus rhythm Normal ECG Confirmed by SENG MCINTYRE DO ([id number]), newspaper copy editor SYDNEY HOOKS ([id number]) on 06/17/2018 9:33:56 PM Referred By: Confirmed By:SENG MCINTYRE DO
== END 2018-06-16 09:30 | disposition home or self-care (01) | DRG 690 ==
LOC: SCSER 10:05 → ERHOLD 12:10 → SURG B 15:46
PROVIDERS: ADMIT Internal Medicine; ATTEND Internal Medicine
DX: N10 Acute pyelonephritis (principal); Z68.43 Body mass index [BMI] 50.0-59.9, adult; N17.9 Acute kidney failure, unspecified; E66.01 Morbid (severe) obesity due to excess calories; E86.0 Dehydration; Z87.442 Personal history of urinary calculi; I12.9 Hypertensive chronic kidney disease with stage 1 through stage 4 chronic kidney disease, or unspecified chronic kidney disease; E11.22 Type 2 diabetes mellitus with diabetic chronic kidney disease; N18.3 Chronic kidney disease, stage 3 (moderate); G47.33 Obstructive sleep apnea (adult) (pediatric); Z79.4 Long term (current) use of insulin; Z85.41 Personal history of malignant neoplasm of cervix uteri; Z79.899 Other long term (current) drug therapy; Z88.8 Allergy status to other drugs, medicaments and biological substances; Z91.040 Latex allergy status; Z88.2 Allergy status to sulfonamides; Z88.1 Allergy status to other antibiotic agents; B96.20 Unspecified Escherichia coli [E. coli] as the cause of diseases classified elsewhere
CPT/HCPCS: 36415; 36416; 36569; 71046; 74176; 80048; 80053; 80202; 81003; 81015; 83605; 83690; 83735; 85025; 86140; 87040; 87086; 93005; 96361; 96365; 96367; 96375; 96376; C1751; J1650; J2185; J2270; J2405; J2543; J3370; J7050; Q0162

== ENCOUNTER 2018-07-11 14:02 | Outpatient (CLI) | payer OTHER ==
--- NOTE | 2018-07-11 15:17 | ULT ---
BILATERAL RENAL ULTRASOUND: HISTORY: Pyelonephritis. FINDINGS: The right kidney measures 11.4 cm in length and the left kidney measures 12.8 cm in length. No hydro nephrosis is seen on either side. There is a 1.2 cm left renal cyst. The urinary bladder is unremar kable. IMPRESSION: Left renal cyst. POS: [facility]
== END 2018-07-11 14:03 | disposition home or self-care (01) ==
LOC: ULT 14:02
PROVIDERS: ATTEND Family Medicine
DX: N10 Acute pyelonephritis (principal); N28.1 Cyst of kidney, acquired
CPT/HCPCS: 76770

== ENCOUNTER → 2018-07-12 | Day surgery (SDC) | payer OTHER ==
--- NOTE | 2018-07-12 12:00 | SPC ---
SONOGRAPHIC GUIDED LEFT UPPER EXTREMITY PICC PLACEMENT: HISTORY: Pyelonephritis. FINDINGS: After explaining the procedures and answering all questions, the left upper extremity was prepped and draped in the usual sterile fashion. Sterile technique, buffered local anesthesia, sonographic guid ance, and a 22 gauge needle were used to carefully access the left cephalic vein. Standard technique was then used to place the tip of a 5 [place] single-lumen PICC so that the tip lies at the level of the superior vena cava. The catheter was flushed and secured externally. The patient tolerated the procedure well and was dismissed in good condition. Fluoroscopy time was 0.2 minutes. IMPRESSION: Left upper extremity peripherally inserted central catheter is ready for use. POS: [facility]
== END ==
LOC: SPEC 08:05
PROVIDERS: ATTEND Internal Medicine Infectious Disease
PROC: 02HV33Z Insertion of Infusion Device into Superior Vena Cava, Percutaneous Approach (ICD-10-PCS; principal; 2018-07-12)
DX: N11.1 Chronic obstructive pyelonephritis (principal); Z79.4 Long term (current) use of insulin; Z79.899 Other long term (current) drug therapy; Z88.1 Allergy status to other antibiotic agents; Z88.6 Allergy status to analgesic agent; Z88.8 Allergy status to other drugs, medicaments and biological substances; Z91.040 Latex allergy status
CPT/HCPCS: 36569

== ENCOUNTER 2018-08-22 09:50 | Outpatient (CLI) | payer OTHER ==
[2018-08-22 12:32] LABS: Hemoglobin 12.6 g/dL (12.0-16.0); Mean Corpuscular Hemoglobin 27.4 pg (27.0-31.0); Mean Corpuscular Volume 83.1 fL (78.0-98.0); Mean Platelet Volume 6.9 fL (7.4-10.4); Platelet Count 271 thou/uL (130-400); RBC Distribution Width 15.1 % (11.5-14.5); Red Blood Cell (RBC) Count 4.61 mill/uL (4.20-5.40); White Blood Cell (WBC) Count 9.1 thou/uL (4.8-10.8)
[2018-08-22 12:40] LABS: PTT 27.9 SEC (22.9-36.1); Prothrombin Time 13.1 SEC (12.0-14.7)
[2018-08-22 13:02] LABS: Chloride 98 mmol/L (98-107); Potassium 3.9 mmol/L (3.5-5.1); Sodium 139 mmol/L (136-145)
[2018-08-22 13:03] LABS: Calcium 10.7 mg/dL (7.8-10.44); Glucose 149 mg/dL (80-115)
[2018-08-22 13:05] LABS: Anion Gap 16 mmol/L (10-20); Carbon Dioxide 29 mmol/L (23-31)
[2018-08-22 13:06] LABS: Calc. Creatinine Clearance 0 mL/min (70-130); Estimated GFR-MDRD 30
[2018-08-22 13:07] LABS: BUN (Urea Nitrogen) 37 mg/dL (9.8-20.1)
[2018-08-22 13:09] LABS: Uric Acid 11.4 mg/dL (2.6-6.0)
== END 2018-08-22 09:51 | disposition home or self-care (01) ==
LOC: LABBT 09:50
PROVIDERS: ATTEND Urology
DX: Z01.812 Encounter for preprocedural laboratory examination (principal); N20.0 Calculus of kidney; E11.40 Type 2 diabetes mellitus with diabetic neuropathy, unspecified; E11.22 Type 2 diabetes mellitus with diabetic chronic kidney disease; N18.3 Chronic kidney disease, stage 3 (moderate); N39.0 Urinary tract infection, site not specified; Z87.448 Personal history of other diseases of urinary system
CPT/HCPCS: 80048; 84550; 85027; 85610; 85730

== ENCOUNTER → 2018-08-31 | Day surgery (SDC) | payer OTHER ==
[~2018-08-31] MED LIST: Heparin 1,000 UNITS/ML VIAL ONE
--- NOTE | 2018-08-31 13:59 | SPC ---
FUltrasound-guided left upper extremity PICC placement: 08/29/2018 HISTORY: 63-year-old female with pyelonephritis requiring long-term IV antibiotics FINDINGS/technique: Informed consent obtained prior to the procedure. Left arm prepped and draped in normal sterile fashion. Skin overlying thecephalicvein anesthetized with 1% buffered lidocaine. With direct sonographic jordan nce, vascular access is obtained via the cephalicvein and an 0.018in wire was advanced to the right a trium. Intravascular length is calculated at 52 cm and of the PICC is cut accordingly. Needle is removed and replaced with a peel-away sheath. The PICC was advanced over the wire. Wire and peel-away sheath were removed. The tip of the catheter overlies the right atrium. The port flushes well and the catheter is ready for use. Exposure data: 2.7 minutes of fluoroscopic time IMPRESSION: Successful ultrasound guided placement of a left upper extremity PICC.
== END ==
LOC: SPEC 11:08
PROVIDERS: ATTEND Internal Medicine Infectious Disease
PROC: B244ZZZ Ultrasonography of Right Heart (ICD-10-PCS; principal; 2018-08-31)
PROC: 02H633Z Insertion of Infusion Device into Right Atrium, Percutaneous Approach (ICD-10-PCS; principal; 2018-08-31)
DX: N12 Tubulo-interstitial nephritis, not specified as acute or chronic (principal); Z88.1 Allergy status to other antibiotic agents; Z88.6 Allergy status to analgesic agent; Z91.040 Latex allergy status
CPT/HCPCS: 36569; C1751; J1644

== ENCOUNTER 2018-09-06 11:10 | Outpatient (CLI) | payer OTHER ==
[2018-09-06 12:30] LABS: Hemoglobin 12.1 g/dL (12.0-16.0); Mean Corpuscular HGB CONC 33.9 g/dL (32.0-36.0); Mean Corpuscular Hemoglobin 28.8 pg (27.0-31.0); Platelet Count 221 thou/uL (130-400); RBC Distribution Width 15.6 % (11.5-14.5); White Blood Cell (WBC) Count 7.5 thou/uL (4.8-10.8)
[2018-09-06 12:46] LABS: Anion Gap 16 mmol/L (10-20); BUN (Urea Nitrogen) 28 mg/dL (9.8-20.1); Calc. Creatinine Clearance 0 mL/min (70-130); Calcium 10.3 mg/dL (7.8-10.44); Carbon Dioxide 28 mmol/L (23-31); Chloride 100 mmol/L (98-107); Estimated GFR-MDRD 42; Glucose 152 mg/dL (80-115); Potassium 4.1 mmol/L (3.5-5.1); Sodium 140 mmol/L (136-145)
--- NOTE | 2018-09-06 16:52 | EKG ---
Test Reason : Blood Pressure : / mmHG Vent. Rate : 080 BPM Atrial Rate : 080 BPM P-R Int : 158 ms QRS Dur : 098 ms QT Int : 386 ms P-R-T Axes : 059 043 065 degrees QTc Int : 445 ms Normal sinus rhythm with sinus arrhythmia Low voltage QRS Nonspecific T wave abnormality Abnormal ECG When compared with ECG of 11-JUN-2018 10:14, No significant change was found Confirmed by SHAILESH CASTRO, DR. S. ([id number]) on 09/06/2018 4:52:01 PM Referred By: LUCIE Confirmed By:DR. Sydnee CASH MD
== END 2018-09-06 11:11 | disposition home or self-care (01) ==
LOC: LABBT 11:10
PROVIDERS: ATTEND Urology
DX: Z01.812 Encounter for preprocedural laboratory examination (principal); N20.0 Calculus of kidney; E11.22 Type 2 diabetes mellitus with diabetic chronic kidney disease; N18.3 Chronic kidney disease, stage 3 (moderate); E11.40 Type 2 diabetes mellitus with diabetic neuropathy, unspecified; N39.0 Urinary tract infection, site not specified; Z87.448 Personal history of other diseases of urinary system
CPT/HCPCS: 80048; 85027; 93005; 93010

== ENCOUNTER 2018-09-13 05:54 | Day surgery (SDC) | payer OTHER ==
[2018-09-06 11:25] VITALS: BMI 52.1
[2018-09-13] MEDS ORDERED: MEROPENEM 1 GM/50 ML 1 GM in Premix Bag 1 BAG IVPB SCH (06:45)
[2018-09-13] MEDS ORDERED: Fentanyl 100 MCG/2 ML VIAL ONE ×2 (07:26→10:29)
[2018-09-13] MEDS ORDERED: Midazolam HCl 2 mg/2 ml Vial ONE (07:28)
--- NOTE | 2018-09-13 07:51 | RAD ---
XR Abdomen 1 View/KUB History: [Preop] Comparison: CT abdomen June 2018 Findings: Evaluation for free air is noted without a prior examination. Punctate calcifications proje ct over the left inferior renal collecting system. Advanced degenerative facet arthropathy lower lumb ar spine. There are phleboliths in the pelvis. Enthesopathic changes of the hamstring tendons bilater ally. No dilated air-filled loops of large or small bowel. Moderate stool burden throughout the colon. Impression: Left nephrolithiasis.
--- NOTE | 2018-09-13 09:10 | RAD ---
RETROGRADE LEFT UROGRAM 09/13/2018 HISTORY: Left renal calculi. COMPARISON: CT abdomen and pelvis on 06/11/2018 and retrograde left urogram of 09/06/2012. FINDINGS/IMPRESSION: Initial image demonstrates guidewire in place within the left ureter and in the region of the left re nal collecting system. There is partial opacification of the left renal collecting system as well as the left ureter without evidence of significant hydronephrosis seen on provided limited images. Howev er, there is incomplete opacification of the left renal collecting system. Final image demonstrates a double pigtail left ureteral stent in place with complete emptying of the contrast from the left catherine al collecting system and ureter. Correlation with intraoperative findings is recommended.
[2018-09-13] MEDS ORDERED: Phenazopyridine HCl 97.5 MG TABLET ONE (09:49)
[2018-09-13] MEDS ORDERED: Oxybutynin 5 MG TAB ONE (09:49)
[2018-09-13] MEDS ORDERED: HYDROcodone/Acetaminophen 5/325 mg Tablet ONE (11:40)
[2018-09-13] MEDS ORDERED: Iothalamate Meglumine 60% 50 ML VIAL FS ONE (11:55)
[2018-09-13] MEDS ORDERED: Metoclopramide HCl 10 MG/2 ML VIAL ONE (13:49)
[2018-09-13] MEDS ORDERED: Ondansetron PF 4 MG/2 ML Vial ONE (13:49)
[2018-09-13] MEDS ORDERED: Rocuronium Bromide 10 MG/ML (10ML VIAL) ONE (13:49)
[2018-09-13] MEDS ORDERED: Lidocaine 1% PF 5 ML VIAL ONE (13:49)
[2018-09-13] MEDS ORDERED: PHENYLEPHRINE-NS 100 MCG/ML 10 ML SYRINGE ONE (13:49)
[2018-09-13] MEDS ORDERED: Glycopyrrolate 0.2 MG/ML 5 ML SYRINGE ONE (13:49)
[2018-09-13] MEDS ORDERED: PROPOFOL 200 MG/20 ML VIAL ONE (13:49)
--- NOTE | 2018-09-13 15:48 | OP ---
DATE OF PROCEDURE: 09/13/2018 PREOPERATIVE DIAGNOSES: 1. This is a 63-year-old morbidly obese female with history of recurrent kidney stone, diabetes, history of left pyelonephritis. 2. History of left three renal lithiasis: 3 x 3 mm, 3 x 4 mm, 3 x 3 mm. POSTOPERATIVE DIAGNOSES: 1. This is a 63-year-old morbidly obese female with history of recurrent kidney stone, diabetes, history of left pyelonephritis. 2. History of left three renal lithiasis: 3 x 3 mm, 3 x 4 mm, 3 x 3 mm. PROCEDURES PERFORMED: Cystoscopy, left dilatation of the intramural ureter, retrograde pyelogram, flexible ureteroscopy, pyeloscopy, laser lithotripsy of multiple renal calculi, basket extraction of stone fragments, basket extraction of mucus stone debris, 6 x 24 double-J ureteral stent placement with distal tail in situ. ANESTHESIA: General. COMPLICATIONS: None apparent. DISPOSITION: To recovery room in stable condition. SPECIMENS: Stone for chemical analysis. INTRAOPERATIVE FINDINGS: 1. Moderate size rectocele, grade 3 to 4. Bladder demonstrates chronic cystitis changes. 2. No bladder lesion concerning for malignancy. 3. Left pyeloscopy demonstrating multiple mucoid/matrix stones consistent with recurrent pyelonephritis, UTI,; 3 to 4 stone nid[address] consistent with CT scan. INDICATIONS FOR PROCEDURE AND HISTORY: Ms. Herron is a 63-year-old morbidly obese female, referred to me by Dr. Coffey. He saw the patient inhouse back in June, had a PICC line for IV meropenem due to multiple drug allergies and her baseline renal insufficiency. She was previously followed by Dr. Forrest; however , was referred to me due to insurance change. She does have a history of prior ureteroscopy, ESWL of the left renal lithiasis, previously measuring 1.[address] scan, stone nidus as above. As she has persistent bacteriuria, I informed her to proceed with ureteroscopy/pyeloscopy. I also informed her that despite clearance of her small stone debris that she does have persistent risk of recurrent UTI pyelonephritis. Risks and complications and indications were reviewed with her in detail. Risks and complications including, but not limited to: Bleeding, pain, infection, urosepsis, possible secondary procedure, injury to bladder/ureter/kidney, stricture formation, PE, DVT, MT was reviewed with her in detail, and she desired to proceed. She has been on IV meropenem. Repeat urine culture is negative. DESCRIPTION OF PROCEDURE: After an informed consent was signed, the patient was taken to the operating room and placed in a dorsal lithotomy position with the genital area prepped and draped in the usual surgical sterile fashion. Bilateral JESI hose, SCDs, and broad-spectrum antibiotics, IV meropenem was provided via PICC line. A 21-[place]izen [place] cystoscope was utilized for cystoscopy, which demonstrated normal urethra. Upon entering the bladder, there were changes consistent with cystitis cystica/chronic cystitis changes. There are no papillary lesions concerning for malignancy. The UOs were identified in normal orthotopic position. Of note, she does have a significant grade 3 to 4 prolapse, rectocele. We passed a 0.35 Sensor wire into the left upper pole, and using a dual-lumen access sheath, we passed this over the existing wire and a retrograde pyelogram was performed opacifying the collecting system. A second safety wire 0.35 Super Stiff was then passed. Using a [employer] 4 cm 12-Citizen [place] balloon, we dilated the intramural with ease. Subsequently, I was able to pass an 11/13-[place]izen [place] x 28 cm navigator to the level of the proximal ureter with ease. Flexible ureteroscopy was passed over the working wire, safety wire remained in situ. Upon entering the collecting system, the working wire was removed and pyeloscopy was performed. In consistent with the CT scan, there are multiple globules of stone debris matrix stones, which is consistent with history of infection process. These are mucoid stone debris, they are unable to be basket extracted as it siphoned right through as they are soft mucoid debris. We lasered some of these for better visualization. I was able to see the stone in the mid pole. There were 3 to 4 stone niduses. I laser lithotripsy the stone, which appeared to be quite hard. Using 200 micron laser fiber, we laser lithotripsied the stones. I basket extracted all stone debris. We surveyed the collecting system , which demonstrated no further stone nidus. However, she does have significant mucoid stone debris, likely matrix moiety consistent with recurrent UTI. As they were unable to be basketed due to their mucoid proteinaceous nature, we laser lithotripsied these into fluff-like debris. At the end of the procedure, there was fluffed debris circulating in the renal pelvis, however, not the globules that may obstruct the ureter per se. The collecting system was irrigated. I surveyed the collecting system, which demonstrated no evidence of trauma. Ureter was also surveyed, which demonstrated no evidence of ureteral perforation or stone debris of concern. The navigator was removed and a 6 x 24 double-J ureteral stent was passed into the left collecting system without difficulty and left distal tail was left in situ. KUB is suboptimal in this patient as she is morbidly obese. I will arrange a CT stone protocol on September 20. Pending review of CT scan, she is scheduled for cysto stent pull in my office on September 21. She is discharged with VESIcare 5 mg one p.o. daily for 10 days, Mayer 5/325 #30, Azo p.r.n., Colace p.r.n. She is to continue her IV Invanz unless she is notified by . I will advise her and family regarding increase water consumption. Job ID: [id number] MTDD
== END 2018-09-13 12:35 | disposition home or self-care (01) ==
LOC: SDC 05:54
PROVIDERS: ATTEND Urology
PROC: 0TF78ZZ Fragmentation in Left Ureter, Via Natural or Artificial Opening Endoscopic (ICD-10-PCS; principal; 2018-09-13)
PROC: 0T778DZ Dilation of Left Ureter with Intraluminal Device, Via Natural or Artificial Opening Endoscopic (ICD-10-PCS; principal; 2018-09-13)
DX: N20.1 Calculus of ureter (principal); K62.3 Rectal prolapse; E11.9 Type 2 diabetes mellitus without complications; E66.01 Morbid (severe) obesity due to excess calories; I10 Essential (primary) hypertension; G47.30 Sleep apnea, unspecified; E78.5 Hyperlipidemia, unspecified; Z68.43 Body mass index [BMI] 50.0-59.9, adult; Z79.4 Long term (current) use of insulin; Z79.899 Other long term (current) drug therapy; Z88.2 Allergy status to sulfonamides; Z88.8 Allergy status to other drugs, medicaments and biological substances
CPT/HCPCS: 74018; 74420; 82365; 88300; C1758; C1769; J2001; J2185; J2250; J2405; J2704; J2765; J3010; Q9961

== ENCOUNTER 2018-09-20 07:27 | Outpatient (CLI) | payer OTHER ==
--- NOTE | 2018-09-20 08:36 | CT ---
CT abdomen and pelvis noncontrast HISTORY: Renal stone. Left stent in place. FINDINGS: Double pigtail left ureteral stent now in place. Each renal collecting system, ureter, and the urinary bladder is decompressed. A tiny, 1 mm stone remains within a nondilated calyx in the superior pole of the left kidney. No othe r stones are apparent. Lack of contrast limits evaluation for other abnormalities. Hyperdense stones within the gallbladder lumen. Degenerative changes lumbar spine. Phleboliths within the pelvis. IMPRESSION: Left ureteral stent is in good position with decompression of the left renal collecting s ystem and ureter. Tiny residual left ureteral calculus. Other stones are now absent. Cholelithiasis.
== END 2018-09-20 07:28 | disposition home or self-care (01) ==
LOC: CT 07:27
PROVIDERS: ATTEND Urology
DX: N20.0 Calculus of kidney (principal); N20.1 Calculus of ureter; K80.20 Calculus of gallbladder without cholecystitis without obstruction; N28.89 Other specified disorders of kidney and ureter; Z96.0 Presence of urogenital implants
CPT/HCPCS: 74176

== ENCOUNTER 2019-01-26 07:15 | Outpatient (CLI) | payer MEDICARE, OTHER ==
[2019-01-26 08:24] LABS: Bilirubin Negative (Negative); Blood, Urine Negative (Negative); Clarity Clear (Clear); Glucose, Urine (Dipstick) Negative (Negative); Leukocyte Negative (Negative); Nitrite Negative (Negative); Protein, Urine (Dipstick) Negative (Neg-Trace); Urobilinogen 0.2 mg/dL (Less than 2)
--- NOTE | 2019-01-26 08:33 | RAD ---
RADIOGRAPH ABDOMEN ONE VIEW: 01/26/2019 HISTORY: A 64-year-old female with calculus of kidney. COMPARISON: 09/13/2018 FINDINGS: The previously demonstrated cluster of a few small calcifications overlying the left renal lower pole shadow is no longer visualized. The left ureteral stent that was present on the 09/20/2018 CT has b een removed. High-grade bilateral facet DJD at L4-L5 and L5-S1. Moderate DJD at the bilateral SI denilson ints. Bilateral hip joints are relatively normal. Normal bowel gas pattern. No evidence of organom egaly. IMPRESSION: 1. No urolithiasis visualized. 2. Lower lumbar spondylosis, consisting of facet osteoarthrosis. POS: [facility]
--- NOTE | 2019-01-26 08:36 | ULT ---
BILATERAL RENAL ULTRASOUND: HISTORY: Kidney stones. FINDINGS: The right kidney measures 11.8 cm in length and the left kidney measures 11.6 cm in length. There is a 1.4 cm cyst in the left kidney. No hydronephrosis is seen on either side. No shadowing calculi ar e identified. The pre-void bladder volume measures 226 mL with a post-void residual of 28 mL. IMPRESSION: 1. Left renal cyst. 2. No evidence of high-grade obstruction. POS: [facility]
[2019-01-26 08:45] LABS: Anion Gap 17 mmol/L (10-20); BUN (Urea Nitrogen) 32 mg/dL (9.8-20.1); Calc. Creatinine Clearance 0 mL/min (70-130); Carbon Dioxide 27 mmol/L (23-31); Chloride 99 mmol/L (98-107); Estimated GFR-MDRD 33; Glucose 152 mg/dL (80-115); Potassium 3.9 mmol/L (3.5-5.1); Sodium 139 mmol/L (136-145); Uric Acid 9.8 mg/dL (2.6-6.0)
[2019-01-26 09:51] LABS: Bacteria/HPF Rare-Few HPF (None Seen); Epithelial Cast None Seen LPF (None Seen); RBC/HPF 0-3 HPF (0-3); Squamous Epithelial 0-3 HPF (0-3); WBC/HPF 0-3 HPF (0-3)
[2019-01-26 09:52] LABS: Urine Culture Reflex No No
== END 2019-01-26 07:16 | disposition home or self-care (01) ==
LOC: SCSULT 07:15
PROVIDERS: ATTEND Urology
DX: N20.0 Calculus of kidney (principal); N39.0 Urinary tract infection, site not specified; M47.816 Spondylosis without myelopathy or radiculopathy, lumbar region; Z87.448 Personal history of other diseases of urinary system
CPT/HCPCS: 36415; 74018; 76770; 80048; 81001; 83970; 84550

== ENCOUNTER 2019-02-24 16:37 | Emergency (ER) | payer MEDICARE, OTHER ==
[2019-02-24 17:30] LABS: Bilirubin Negative (Negative); Blood, Urine Negative (Negative); Clarity Clear (Clear); Glucose, Urine (Dipstick) Negative (Negative); Leukocyte Trace (Negative); Nitrite Negative (Negative); Protein, Urine (Dipstick) Negative (Neg-Trace); Urobilinogen 0.2 mg/dL (Less than 2)
[2019-02-24 17:32] LABS: Bacteria/HPF 1+ HPF (None Seen); RBC/HPF None Seen HPF (0-3); WBC/HPF 0-3 HPF (0-3)
[2019-02-24] MEDS ORDERED: Acetaminophen 325 MG TAB ONE (17:35)
[2019-02-24 17:58] LABS: #Basophils 0.1 thou/uL (0.0-0.2); #Eosinphils 0.1 thou/uL (0.0-0.7); #Lymphocytes 1.3 thou/uL (1.20-3.40); #Monocytes 0.4 thou/uL (0.11-0.59); #Neutrophils 6.1 thou/uL (1.40-6.50); %Basophils 0.7 % (0.0-1.0); %Eosinophils 1.4 % (0.0-10.0); %Monocytes 5.4 % (0.0-10.0); %Neutrophils 76.5 % (42.0-75.0); Hemoglobin 12.1 g/dL (12.0-16.0); Mean Corpuscular HGB CONC 32.6 g/dL (32.0-36.0); Mean Corpuscular Hemoglobin 27.8 pg (27.0-31.0); Mean Corpuscular Volume 85.1 fL (78.0-98.0); Mean Platelet Volume 6.5 fL (7.4-10.4); Platelet Count 206 thou/uL (130-400); RBC Distribution Width 14.9 % (11.5-14.5); Red Blood Cell (RBC) Count 4.36 mill/uL (4.20-5.40)
[2019-02-24 18:14] LABS: ALT (SGPT) 32 U/L (8-55); AST (SGOT) 22 U/L (5-34); Albumin 4.2 g/dL (3.4-4.8); Alkaline Phosphatase 60 U/L (40-150); Anion Gap 18 mmol/L (10-20); BUN (Urea Nitrogen) 26 mg/dL (9.8-20.1); Bilirubin, Total 0.4 mg/dL (0.2-1.2); Calc. Creatinine Clearance 0 mL/min (70-130); Calcium 10.1 mg/dL (7.8-10.44); Carbon Dioxide 25 mmol/L (23-31); Chloride 101 mmol/L (98-107); Estimated GFR-MDRD 37; Globulin 2.9 g/dL (2.4-3.5); Glucose 126 mg/dL (80-115); Potassium 3.6 mmol/L (3.5-5.1); Protein, Total 7.1 g/dL (6.0-8.3); Sodium 140 mmol/L (136-145)
== END 2019-02-24 18:57 | disposition home or self-care (01) ==
LOC: SCSER 16:37
DX: N39.0 Urinary tract infection, site not specified (principal); I12.9 Hypertensive chronic kidney disease with stage 1 through stage 4 chronic kidney disease, or unspecified chronic kidney disease; N18.3 Chronic kidney disease, stage 3 (moderate); E66.9 Obesity, unspecified; E10.22 Type 1 diabetes mellitus with diabetic chronic kidney disease; G47.30 Sleep apnea, unspecified; E78.5 Hyperlipidemia, unspecified; E78.00 Pure hypercholesterolemia, unspecified; I10 Essential (primary) hypertension; M19.90 Unspecified osteoarthritis, unspecified site; G43.909 Migraine, unspecified, not intractable, without status migrainosus; Z79.899 Other long term (current) drug therapy
CPT/HCPCS: 36415; 80053; 81003; 81015; 85025; 87086; 99284

== ENCOUNTER 2019-08-15 19:30 | Outpatient (CLI) | payer MEDICARE, OTHER | END 2019-08-15 19:31 | disposition home or self-care (01) | LOC: SLEEPLAB 19:30 | PROVIDERS: ATTEND Family Medicine | DX: G47.33 Obstructive sleep apnea (adult) (pediatric) (principal) | CPT/HCPCS: 95811 ==

== ENCOUNTER 2021-11-20 06:14 | Day surgery (SDC) | payer MEDICARE, OTHER ==
[2021-11-17 16:17] VITALS: BMI 56.7
== END 2021-11-20 10:45 | disposition home or self-care (01) ==
LOC: SDC 06:14
PROVIDERS: ATTEND Internal Medicine
PROC: 0DB68ZX Excision of Stomach, Via Natural or Artificial Opening Endoscopic, Diagnostic (ICD-10-PCS; principal; 2021-11-20)
PROC: 0DBH8ZX Excision of Cecum, Via Natural or Artificial Opening Endoscopic, Diagnostic (ICD-10-PCS; 2021-11-20)
PROC: 0DBN8ZX Excision of Sigmoid Colon, Via Natural or Artificial Opening Endoscopic, Diagnostic (ICD-10-PCS; 2021-11-20)
PROC: 0DBK8ZX Excision of Ascending Colon, Via Natural or Artificial Opening Endoscopic, Diagnostic (ICD-10-PCS; 2021-11-20)
PROC: 0DBL8ZX Excision of Transverse Colon, Via Natural or Artificial Opening Endoscopic, Diagnostic (ICD-10-PCS; 2021-11-20)
PROC: 0DBM8ZX Excision of Descending Colon, Via Natural or Artificial Opening Endoscopic, Diagnostic (ICD-10-PCS; 2021-11-20)
PROC: 3E0H8KZ Introduction of Other Diagnostic Substance into Lower GI, Via Natural or Artificial Opening Endoscopic (ICD-10-PCS; 2021-11-20)
DX: D50.9 Iron deficiency anemia, unspecified (principal); C18.7 Malignant neoplasm of sigmoid colon; D12.0 Benign neoplasm of cecum; D12.2 Benign neoplasm of ascending colon; D12.3 Benign neoplasm of transverse colon; D12.4 Benign neoplasm of descending colon; K29.61 Other gastritis with bleeding; K25.4 Chronic or unspecified gastric ulcer with hemorrhage; K31.811 Angiodysplasia of stomach and duodenum with bleeding; K64.4 Residual hemorrhoidal skin tags; K64.8 Other hemorrhoids; I10 Essential (primary) hypertension; E78.5 Hyperlipidemia, unspecified; E11.9 Type 2 diabetes mellitus without complications; G47.30 Sleep apnea, unspecified; Z85.42 Personal history of malignant neoplasm of other parts of uterus; Z79.4 Long term (current) use of insulin; Z79.899 Other long term (current) drug therapy; Z88.1 Allergy status to other antibiotic agents; Z88.6 Allergy status to analgesic agent; Z91.040 Latex allergy status
CPT/HCPCS: 36416; 88305

== ENCOUNTER 2021-12-15 11:23 | Outpatient (CLI) | payer MEDICARE, OTHER | END 2021-12-15 11:24 | disposition home or self-care (01) | LOC: LABBT 11:23 | PROVIDERS: ATTEND Internal Medicine Hematology & Oncology | DX: C18.7 Malignant neoplasm of sigmoid colon (principal); N28.89 Other specified disorders of kidney and ureter; Z20.822 Contact with and (suspected) exposure to COVID-19 | CPT/HCPCS: 87811 ==

== ENCOUNTER 2021-12-17 13:28 | Outpatient (CLI) | payer MEDICARE, OTHER | END 2021-12-17 13:29 | disposition home or self-care (01) | LOC: LABBT 13:28 | PROVIDERS: ATTEND Internal Medicine | DX: Z20.822 Contact with and (suspected) exposure to COVID-19 (principal) | CPT/HCPCS: 87811 ==

== ENCOUNTER 2021-12-18 08:40 | Day surgery (SDC) | payer MEDICARE, OTHER ==
[2021-12-15 13:41] VITALS: BMI 53.1
[2021-12-18 09:16] LABS: Prothrombin Time 13.3 sec (12.0-14.7)
[2021-12-18 09:17] LABS: PTT 30.4 sec (22.9-36.1)
[2021-12-18 11:24] VITALS: BP 142/62; TEMP 98.1
== END 2021-12-18 13:25 | disposition home or self-care (01) ==
LOC: CT 08:40
PROVIDERS: ATTEND Internal Medicine Hematology & Oncology
PROC: 0FB13ZX Excision of Right Lobe Liver, Percutaneous Approach, Diagnostic (ICD-10-PCS; principal; 2021-12-18)
DX: C78.7 Secondary malignant neoplasm of liver and intrahepatic bile duct (principal); C18.7 Malignant neoplasm of sigmoid colon; D50.0 Iron deficiency anemia secondary to blood loss (chronic); G47.33 Obstructive sleep apnea (adult) (pediatric); J45.909 Unspecified asthma, uncomplicated; M19.90 Unspecified osteoarthritis, unspecified site; E11.9 Type 2 diabetes mellitus without complications; I10 Essential (primary) hypertension; E78.00 Pure hypercholesterolemia, unspecified; E66.01 Morbid (severe) obesity due to excess calories; Z68.43 Body mass index [BMI] 50.0-59.9, adult; Z79.4 Long term (current) use of insulin; Z79.899 Other long term (current) drug therapy; Z88.1 Allergy status to other antibiotic agents; Z88.2 Allergy status to sulfonamides; Z88.6 Allergy status to analgesic agent; Z88.8 Allergy status to other drugs, medicaments and biological substances; Z91.040 Latex allergy status
CPT/HCPCS: 47000; 77002; 85610; 85730; 88307; 88333; 88341; 88342; J2250; J3010

== ENCOUNTER 2021-12-21 11:25 | Day surgery (SDC) | payer MEDICARE, OTHER ==
[2021-12-17 13:43] VITALS: BMI 43.0
[~2021-12-21 11:25] MED LIST changes: +Fentanyl 100 MCG/2 ML VIAL ONE; -Heparin 1,000 UNITS/ML VIAL ONE; +Lidocaine 1% PF 5 ML VIAL ONE; +Midazolam HCl 2 mg/2 ml Vial ONE; +Sodium Bicarbonate 2.5 MEQ/5 ML VIAL ONE
[2021-12-21] MEDS ORDERED: Lidocaine 1% w/Epinephrine 1:100K 20 ML VIAL ONE (13:17)
[2021-12-21] MEDS ORDERED: Bupivacaine 0.25% HCL 30 ML VIAL ONE (13:17)
[2021-12-21] MEDS ORDERED: Propofol 500 MG/50 ML VIAL ONE (13:19)
[2021-12-21] MEDS ORDERED: fentaNYL Citrate/PF 100 MCG/2 ML SYRINGE ONE (13:19)
[2021-12-21] MEDS ORDERED: Midazolam HCl 2 mg/2 ml Vial ONE (13:19)
[2021-12-21] MEDS ORDERED: VANCOMYCIN 2 GRAM/500 ML BAG 2 GM in Premix Bag 1 BAG IVPB SCH (13:30)
[2021-12-21] MEDS ORDERED: HYDROcodone/Acetaminophen 5/325 mg Tablet ONE (15:18)
== END 2021-12-21 15:42 | disposition home or self-care (01) ==
LOC: SDC 11:25
PROVIDERS: ATTEND Surgery
PROC: 0JH60WZ Insertion of Totally Implantable Vascular Access Device into Chest Subcutaneous Tissue and Fascia, Open Approach (ICD-10-PCS; principal; 2021-12-21)
PROC: 02HV33Z Insertion of Infusion Device into Superior Vena Cava, Percutaneous Approach (ICD-10-PCS; 2021-12-21)
DX: C18.7 Malignant neoplasm of sigmoid colon (principal); C78.00 Secondary malignant neoplasm of unspecified lung; C78.7 Secondary malignant neoplasm of liver and intrahepatic bile duct; G47.33 Obstructive sleep apnea (adult) (pediatric); E78.5 Hyperlipidemia, unspecified; I12.9 Hypertensive chronic kidney disease with stage 1 through stage 4 chronic kidney disease, or unspecified chronic kidney disease; E11.22 Type 2 diabetes mellitus with diabetic chronic kidney disease; N18.32 Chronic kidney disease, stage 3b; E66.9 Obesity, unspecified; Z68.41 Body mass index [BMI] 40.0-44.9, adult; Z79.4 Long term (current) use of insulin; Z79.899 Other long term (current) drug therapy; Z88.1 Allergy status to other antibiotic agents; Z88.6 Allergy status to analgesic agent; Z88.8 Allergy status to other drugs, medicaments and biological substances; Z91.040 Latex allergy status
CPT/HCPCS: 36561; 71045; 82962; J3370; 36416; C1788; J1642; J2250; J2704; S0020